=== PATIENT | male | born 1950 | race Caucasian/White ===

== ENCOUNTER 2017-12-01 18:53 | Emergency (ER) | payer MEDICARE, OTHER ==
[~2017-12-01] VITALS: Ht 165.1 cm; Wt 68.0 kg
[2017-12-01] MEDS ORDERED: AMLODIPINE BESYLATE 5 MG TABLET ONE (19:25)
--- NOTE | 2017-12-01 19:28 | NUR ---
PT MEDICATED ORDERED.
[2017-12-01] MEDS ORDERED: AMLODIPINE BESYLATE 5 MG TABLET PO ONE (19:30)
--- NOTE | 2017-12-01 19:50 | NUR ---
Patient discharged to home in stable condition. Written and verbal after care instructions given. Patient verbalizes understanding of instruction. ambulatory with a steady gait noted. pt aaox4 no acute distress noted, resp even and unlabored. pt denies pain or discomfort at this time.
[2017-12-01 19:51] VITALS: BP 168/92
== END 2017-12-01 19:57 | disposition home or self-care (01) ==
LOC: ER 18:55
DX: R07.89 Other chest pain (principal); R51 Headache; I10 Essential (primary) hypertension; Z87.891 Personal history of nicotine dependence
CPT/HCPCS: A4606; Z7610

== ENCOUNTER 2019-08-23 23:07 | Emergency (ER) | payer MEDICARE, MEDICAID ==
[~2019-08-23] VITALS: Ht 165.1 cm; Wt 68.0 kg
--- NOTE | 2019-08-23 23:20 | NUR ---
PT CAME TO ER BED 5 C/O CHEST PAIN PROVOKED BY COUGH. PT STATES THAT THIS COUGH HAS BEEN ONGOING FOR ABOUT 3X WEEKS. PT STATES THAT HE IS ABLE TO PRODUCE PHLEGM. AAOX4. NO SOB. BREATHING EVENLY AND UNLABORED ON ROOM AIR. CONNECTED TO MONITOR.
--- NOTE | 2019-08-23 23:24 | NUR ---
EKG AT BEDSIDE
[2019-08-23] MEDS ORDERED: ALBUTEROL FS 2.5 MG/0.5 ML VIAL.NEB NEB ONE (23:30)
[2019-08-24] MEDS ORDERED: ALBUTEROL FS 2.5 MG/0.5 ML VIAL.NEB ONE
--- NOTE | 2019-08-24 00:03 | NUR ---
RT AT BEDSIDE
--- NOTE | 2019-08-24 00:25 | NUR ---
Patient discharged to home in stable condition. Written and verbal after care instructions given. Patient verbalizes understanding of instruction.
[2019-08-24 00:26] VITALS: BP 145/77
== END 2019-08-24 00:26 | disposition home or self-care (01) ==
LOC: ER 23:17
DX: J40 Bronchitis, not specified as acute or chronic (principal); I10 Essential (primary) hypertension
CPT/HCPCS: 71045-TC

== ENCOUNTER 2022-12-14 05:19 | Emergency (ER) | payer OTHER ==
[~2022-12-14] VITALS: Ht 162.6 cm; Wt 69.9 kg
--- NOTE | 2022-12-14 06:11 | NUR ---
Xray at bedside.
--- NOTE | 2022-12-14 06:11 | NUR ---
L thumb pain since yesterday from hitting on a hard metal object
[2022-12-14] MEDS ORDERED: TDAP [DIPH/PERTUSSIS/TET] 0.5 ML VIAL IM ONE ×2 (08:00→08:02)
[2022-12-14] MEDS ORDERED: SULF1TAB48 PO (08:00)
[2022-12-14] MEDS ORDERED: CEPH500C2 PO (08:00)
--- NOTE | 2022-12-14 08:09 | NUR ---
Patient discharged to home in stable condition. Written and verbal after care instructions given. Patient verbalizes understanding of instruction.
[2022-12-14 08:10] VITALS: BP 133/77
== END 2022-12-14 08:11 | disposition home or self-care (01) ==
LOC: ER 05:21
DX: S60.312A Abrasion of left thumb, initial encounter (principal); I10 Essential (primary) hypertension; Z79.899 Other long term (current) drug therapy; W22.8XXA Striking against or struck by other objects, initial encounter; Y93.89 Activity, other specified; Y92.89 Other specified places as the place of occurrence of the external cause; Y99.8 Other external cause status
CPT/HCPCS: 73130-TC; 90715